=== PATIENT | male | born 1960 ===

== ENCOUNTER 2016-12-13 14:22 | Observation (INO) | payer MEDICAID, OTHER ==
[2016-12-13 14:35] VITALS: BMI 23.1
[2016-12-13] MEDS ORDERED: Aspirin 325 mg EC Tablets PO STA (15:20)
[2016-12-13 15:35] LABS: BASO # 0.1 K/uL (0.0-0.2); BASO % 0.5 % (0.0-2.0); EOS % 0.2 % (0.0-4.0); HEMATOCRIT 44.8 % (35.0-51.0); LYMPH # 3.6 K/uL (1.0-4.3); LYMPH % 33.1 % (20.0-40.0); MEAN CORPUSCULAR HEMOGLOBIN 29.2 pg (27.0-31.0); MEAN CORPUSCULAR HGB CONC 34.4 g/dL (33.0-37.0); MEAN PLATELET VOLUME 7.2 fL (7.2-11.7); MONO # 0.7 K/uL (0.0-0.8); NRBC % 0.1 % (0.0-2.0); RED CELL DISTRIBUTION WIDTH 12.6 % (11.5-14.5); WHITE BLOOD COUNT 10.9 K/uL (4.8-10.8)
[2016-12-13 15:42] LABS: CHLORIDE 95 mmol/L (98-107)
[2016-12-13 15:43] LABS: POTASSIUM 3.5 mmol/L (3.6-5.2); SODIUM 135 mmol/L (132-148)
[2016-12-13 15:45] LABS: BILIRUBIN,TOTAL 1.4 mg/dL (0.2-1.3); GFR AFRICAN-AMERICAN > 60
[2016-12-13 15:46] LABS: ALB/GLOB RATIO 1.2 (1.0-2.1); ALKALINE PHOSPHATASE 98 U/L (38-126); ALT/SGPT 42 U/L (21-72); AST/SGOT 27 U/L (17-59); BLOOD UREA NITROGEN 12 mg/dL (9-20); CALCIUM 9.5 mg/dl (8.6-10.4); CARBON DIOXIDE 24 mmol/L (22-30); GLUCOSE,RANDOM 93 mg/dL (75-110); TOTAL PROTEIN 8.3 g/dL (6.3-8.3)
[2016-12-13 15:53] LABS: PARTIAL THROMBOPLASTIN TIME 32 SECONDS (21-34)
--- NOTE | 2016-12-13 15:54 | C.PDOC ---
History Of Present Illness 56 yr old male with PMHx of HTN and gastritis, presents to the ER for intermittent left sided chest discomfort for the past 3-4 days. Patient describes it as a squeezing sensation and feels like his heart is racing and feels SOB for few minuets. Patient states he gets these symptoms when he is resting and something when he is walking. Reports 2 months ago he was in [facility] and was seen by a doctor who did an EKG and echo but is unknown of the results. Patient also reports 2 month history of left sided throbbing headache, states the headache comes and goes. States the headache occurs on a daily bases and usually last all day, has tries Tylenol with minimal relief. Patient denies trauma, fever, chills, vision changes, photophobia, nausea, vomiting, weakness or numbness. Time Seen by Provider: 12/13/16 14:52 Chief Complaint (Nursing): Chest Pain History Per: Patient History/Exam Limitations: no limitations Onset/Duration Of Symptoms: Days Past Medical History Reviewed: Historical Data, Nursing Documentation, Vital Signs Vital Signs: Last Vital Signs Temp 98.1 F 12/13/16 14:36 Pulse 94 H 12/13/16 18:01 Resp 18 12/13/16 18:01 BP 152/91 H 12/13/16 18:01 Pulse Ox 100 12/13/16 19:07 - Medical History PMH: Benign Prostatic Hyperplasia, Gastritis, HTN, Kidney Stones, Chronic Kidney Disease Family History: States: No Known Family Hx, Unknown Family Hx - Social History Hx Tobacco Use: No Hx Alcohol Use: Yes Hx Substance Use: No - Immunization History Hx Tetanus Toxoid Vaccination: No Hx Influenza Vaccination: No Hx Pneumococcal Vaccination: No Review Of Systems Except As Marked, All Systems Reviewed And Found Negative. Constitutional: Negative for: Fever, Chills Eyes: Negative for: Vision Change Cardiovascular: Positive for: Other ((+) Left sided chest discomfort ) Gastrointestinal: Negative for: Nausea, Vomiting Neurological: Positive for: Headache (Left sided throbing ). Negative for: Weakness, Numbness Physical Exam - Physical Exam Appears: Well, Non-toxic, No Acute Distress Skin: Warm, Dry, No Rash Head: Atraumatic, Normacephalic Oral Mucosa: Moist Chest: Symmetrical, No Tenderness Cardiovascular: Rhythm Regular, No Murmur Respiratory: Normal Breath Sounds, No Rales, No Rhonchi, No Wheezing Gastrointestinal/Abdominal: Normal Exam, Soft, No Tenderness, No Guarding, No Rebound Extremity: Normal ROM, No Swelling Neurological/Psych: Oriented x3, Normal Speech, Normal Motor ED Course And Treatment - Laboratory Results Result Diagrams: 12/13/16 15:31 12/13/16 15:31 ECG: Interpreted By Me ECG Rhythm: Sinus Rhythm (NSR at 97 bpm, (-) acute ST changes, as read by PA) O2 Sat by Pulse Oximetry: 100 - Other Rad CXR X-Ray: Viewed By Me, Read By Radiologist Interpretation: HISTORY: chest pain. COMPARISON: Chest x-ray performed . TECHNIQUE: Chest, one view. FINDINGS: Examination limited by habitus. LUNGS: No focal consolidation. Please note that chest x-ray has limited sensitivity for the detection of pulmonary masses. PLEURA: No significant pleural effusion identified. No definite pneumothorax . CARDIOVASCULAR: The cardiomediastinal silhouette appears within normal limits of size. OSSEOUS STRUCTURES: No acute osseous abnormality identified. VISUALIZED UPPER ABDOMEN : Unremarkable. OTHER FINDINGS: None. IMPRESSION: No focal consolidation, significant pleural effusion, or definite pneumothorax identified. - CT Scan/US CT - Head Other Rad Studies (CT/US): Read By Radiologist, Radiology Report Reviewed CT/US Interpretation: PROCEDURE: CT HEAD WITHOUT CONTRAST. HISTORY: headache. COMPARISON: None available. TECHNIQUE: Axial computed tomography images were obtained through the head/brain without intravenous contrast. Radiation dose: Total exam DLP = 828.41 mGy-cm. This CT exam was performed using one or more of the following dose reduction techniques: Automated exposure control, adjustment of the mA and/or kV according to patient size, and/ or use of iterative reconstruction technique. FINDINGS: HEMORRHAGE: No intracranial hemorrhage. BRAIN: No mass effect or edema. Minimal scattered white matter hypodensities, which are nonspecific, but often seen with chronic microvascular ischemic disease. Please note that MRI with diffusion imaging is more sensitive in the detection of acute ischemic event. VENTRICLES: No hydrocephalus. CALVARIUM: Unremarkable. PARANASAL SINUSES: Unremarkable as visualized. No significant inflammatory changes. MASTOID AIR CELLS: Unremarkable as visualized. No inflammatory changes. OTHER FINDINGS: None. IMPRESSION: No acute intracranial pathology identified. Medical Decision Making Medical Decision Making: PLAN: * CT - Head * CXR * EKG * Troponin * D-Dimer * CBC * Aspirin PO Labs reviewed and are wnl, trop (-), d-dimer (-). CXR NAD, CT head negative. On re-evaluation, patient states that he has no chest pain, palpitations, SOB or headache at this time. Exam is unchanged, patient is sitting up in bed comfortably in no acute distress. Diagnostic results discussed with the patient. Case d/w Dr. Gill, agrees with plan for inpatient tele obs with consult with Dr. Champion for cardiology. Bridge orders placed with second troponin ordered. Patient agrees with current plan of care. Disposition Discussed With : Susanne Gill Comment: agrees with inpatient obs tele Doctor Will See Patient In The: Hospital Counseled Patient/Family Regarding: Studies Performed, Diagnosis - Disposition Disposition: HOSPITALIZED Disposition Time: 18:00 (inpatient tele obs) Condition: STABLE - Clinical Impression Clinical Impression: Chest pain, SOB (shortness of breath), Headache, Palpitation - PA / [employer] / Resident Statement MD/DO has reviewed & agrees with the documentation as recorded. - Scribe Statement The provider has reviewed the documentation as recorded by the Scribe Estefanía Blas All medical record entries made by the Devibjean claude were at my direction and personally dictated by me. I have reviewed the chart and agree that the record accurately reflects my personal performance of the history, physical exam, medical decision making, and the department course for this patient. I have also personally directed, reviewed, and agree with the discharge instructions and disposition.
--- NOTE | 2016-12-13 16:13 | RAD ---
HISTORY: chest pain COMPARISON: Chest x-ray performed 07/12/15 TECHNIQUE: Chest, one view. FINDINGS: Examination limited by habitus. LUNGS: No focal consolidation. Please note that chest x-ray has limited sensitivity for the detection of pulmonary masses. PLEURA: No significant pleural effusion identified. No definite pneumothorax . CARDIOVASCULAR: The cardiomediastinal silhouette appears within normal limits of size. OSSEOUS STRUCTURES: No acute osseous abnormality identified. VISUALIZED UPPER ABDOMEN: Unremarkable. OTHER FINDINGS: None. IMPRESSION: No focal consolidation, significant pleural effusion, or definite pneumothorax identified.
--- NOTE | 2016-12-13 17:14 | CT ---
PROCEDURE: CT HEAD WITHOUT CONTRAST. HISTORY: headache COMPARISON: None available. TECHNIQUE: Axial computed tomography images were obtained through the head/brain without intravenous contrast. Radiation dose: Total exam DLP = 828.41 mGy-cm. This CT exam was performed using one or more of the following dose reduction techniques: Automated exposure control, adjustment of the mA and/or kV according to patient size, and/or use of iterative reconstruction technique. FINDINGS: HEMORRHAGE: No intracranial hemorrhage. BRAIN: No mass effect or edema. Minimal scattered white matter hypodensities, which are nonspecific, but often seen with chronic microvascular ischemic disease. Please note that MRI with diffusion imaging is more sensitive in the detection of acute ischemic event. VENTRICLES: No hydrocephalus. CALVARIUM: Unremarkable. PARANASAL SINUSES: Unremarkable as visualized. No significant inflammatory changes. MASTOID AIR CELLS: Unremarkable as visualized. No inflammatory changes. OTHER FINDINGS: None. IMPRESSION: No acute intracranial pathology identified.
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
--- NOTE | 2016-12-13 21:33 | CP.PCM.CON ---
History of Present Illness - History of Present Illness History of Present Illness: 56 Male admitted with Chest pain History Of Present Illness 56 yr old male with PMHx of HTN and gastritis, presents to the ER for intermittent left sided chest discomfort for the past 3-4 days. Patient describes it as a squeezing sensation and feels like his heart is racing and feels SOB for few minuets. Patient states he gets these symptoms when he is resting and something when he is walking. Reports 2 months ago he was in [facility] and was seen by a doctor who did an EKG and echo but is unknown of the results. Patient also reports 2 month history of left sided throbbing headache, states the headache comes and goes. States the headache occurs on a daily bases and usually last all day, has tries Tylenol with minimal relief. Patient denies trauma, fever, chills, vision changes, photophobia, nausea, vomiting, weakness or numbness. Chief Complaint (Nursing): Chest Pain History Per: Patient History/Exam Limitations: no limitations Onset/Duration Of Symptoms: Days - Medical History PMH: Benign Prostatic Hyperplasia, Gastritis, HTN, Kidney Stones, Chronic Kidney Disease Family History: States: No Known Family Hx, Unknown Family Hx - Social History Hx Tobacco Use: No Hx Alcohol Use: Yes Hx Substance Use: No - Immunization History Hx Tetanus Toxoid Vaccination: No Hx Influenza Vaccination: No Hx Pneumococcal Vaccination: No Review Of Systems Except As Marked, All Systems Reviewed And Found Negative. Constitutional: Negative for: Fever, Chills Eyes: Negative for: Vision Change Cardiovascular: Positive for: Other ((+) Left sided chest discomfort ) Gastrointestinal: Negative for: Nausea, Vomiting Neurological: Positive for: Headache (Left sided throbing ). Negative for: Weakness, Numbness Physical Exam - Physical Exam Appears: Well, Non-toxic, No Acute Distress Skin: Warm, Dry, No Rash Head: Atraumatic, Normacephalic Oral Mucosa: Moist Chest: Symmetrical, No Tenderness Cardiovascular: Rhythm Regular, No Murmur Respiratory: Normal Breath Sounds, No Rales, No Rhonchi, No Wheezing Gastrointestinal/Abdominal: Normal Exam, Soft, No Tenderness, No Guarding, No Rebound Extremity: Normal ROM, No Swelling Neurological/Psych: Oriented x3, Normal Speech, Normal Motor Past Patient History - Infectious Disease Hx of Infectious Diseases: None - Past Social History Smoking Status: Never Smoked - CARDIAC Hx Hypertension: Yes - RENAL Hx Chronic Kidney Disease: Yes Hx Kidney Stones: Yes - GASTROINTESTINAL Hx Gastritis: Yes - GENITOURINARY/GYNECOLOGICAL Hx Genitourinary Disorders: Yes - PSYCHIATRIC Hx Substance Use: No - SURGICAL HISTORY Hx Surgeries: Yes Other/Comment: left foot surgery with 12 screws inserted - ANESTHESIA Hx Anesthesia: Yes Hx Anesthesia Reactions: No Meds Allergies/Adverse Reactions: Allergies Allergy/AdvReac Type Severity Reaction Status Date / Time xanax AdvReac PALPITATION Uncoded 12/13/16 14:34 S - Medications Medications: Current Medications Aspirin (Ecotrin) 81 mg PO HS CAROLINE Escitalopram Oxalate (Lexapro) 10 mg PO DAILY CAROLINE Lorazepam (Ativan) 0.5 mg PO BID CAROLINE Metoprolol Tartrate (Lopressor) 25 mg PO BID CAROLINE Results - Vital Signs Recent Vital Signs: Last Vital Signs Temp 98.1 F 12/13/16 14:36 Pulse 90 12/13/16 21:16 Resp 18 12/13/16 21:16 BP 127/88 12/13/16 21:16 Pulse Ox 97 12/13/16 21:16 - Labs Result Diagrams: 12/13/16 15:31 12/13/16 15:31 Assessment & Plan - Assessment and Plan (Free Text) Assessment: 56 Male with Hx of HTN and chest pain Stress test and ECHO in am
[2016-12-14 11:30] VITALS: TEMP 98
--- NOTE | 2016-12-14 13:42 | CP.PCM.DIS ---
Provider - Provider Date of Admission: 12/13/16 18:10 Attending physician: Susanne Gill MD Time Spent in preparation of Discharge (in minutes): 45 Diagnosis - Discharge Diagnosis (1) Chest pain Status: Acute (2) Headache Status: Acute (3) Palpitation Status: Acute (4) Anxiety Status: Acute Hospital Course - Lab Results Lab Results: Most Recent Lab Values WBC 10.9 K/uL (4.8-10.8) H 12/13/16 15: RBC 5.27 Mil/uL (4.40-5.90) 12/13/16 15: Hgb 15.4 g/dL (12.0-18.0) 12/13/16 15: Hct 44.8 % (35.0-51.0) 12/13/16 15: MCV 85.0 fL (80.0-94.0) D 12/13/16 15: MCH 29.2 pg (27.0-31.0) 12/13/16 15: MCHC 34.4 g/dL (33.0-37.0) 12/13/16 15: RDW 12.6 % (11.5-14.5) 12/13/16 15: Plt Count 381 K/uL (130-400) 12/13/16 15: MPV 7.2 fL (7.2-11.7) 12/13/16 15: Neut % (Auto) 60.2 % (50.0-75.0) 12/13/16 15: Lymph % (Auto) 33.1 % (20.0-40.0) 12/13/16 15: Williams % (Auto) 6.0 % (0.0-10.0) 12/13/16 15: Eos % (Auto) 0.2 % (0.0-4.0) 12/13/16 15: Baso % (Auto) 0.5 % (0.0-2.0) 12/13/16 15: Neut # 6.6 K/uL (1.8-7.0) 12/13/16 15: Lymph # 3.6 K/uL (1.0-4.3) 12/13/16 15: Williams # 0.7 K/uL (0.0-0.8) 12/13/16 15:31 Eos # 0.0 K/uL (0.0-0.7) 12/13/16 15:31 Baso # 0.1 K/uL (0.0-0.2) 12/13/16 15:31 PT 11.5 SECONDS (9.7-12.2) 12/13/16 15:31 INR 1.0 12/13/16 15:31 APTT 32 SECONDS (21-34) 12/13/16 15:31 D-Dimer, Quantitative < 200 ng/mlDDU (0-243) 12/13/16 15:31 Sodium 135 mmol/L (132-148) 12/13/16 15:31 Potassium 3.5 mmol/L (3.6-5.2) L 12/13/16 15:31 Chloride 95 mmol/L (98-107) L 12/13/16 15:31 Carbon Dioxide 24 mmol/L (22-30) 12/13/16 15:31 Anion Gap 20 (10-20) 12/13/16 15:31 BUN 12 mg/dL (9-20) 12/13/16 15:31 Creatinine 0.7 MG/DL (0.8-1.5) L 12/13/16 15:31 Est GFR ( Amer) > 60 12/13/16 15:31 Est GFR (Non-Af Amer) > 60 12/13/16 15:31 Random Glucose 93 mg/dL (75-110) 12/13/16 15:31 Calcium 9.5 mg/dl (8.6-10.4) 12/13/16 15:31 Total Bilirubin 1.4 mg/dL (0.2-1.3) H 12/13/16 15:31 AST 27 U/L (17-59) 12/13/16 15:31 ALT 42 U/L (21-72) 12/13/16 15:31 Alkaline Phosphatase 98 U/L (38-126) 12/13/16 15:31 Total Creatine Kinase 176 U/L (55-170) H 12/14/16 06:49 CK-MB (Mass) 4.02 ng/mL (0.0-3.38) H 12/14/16 06:49 Troponin I < 0.0120 ng/mL (0.00-0.120) 12/13/16 21:27 Troponin I, Quant < 0.0120 ng/mL (0.00-0.120) 12/14/16 06:49 Total Protein 8.3 g/dL (6.3-8.3) 12/13/16 15:31 Albumin 4.6 g/dL (3.5-5.0) 12/13/16 15:31 Globulin 3.7 gm/dL (2.2-3.9) 12/13/16 15:31 Albumin/Globulin Ratio 1.2 (1.0-2.1) 12/13/16 15:31 - Hospital Course Hospital Course: 56-year-old male with history of hypertension, anxiety, renal colic, history of depression, also, came to the emergency room with ongoing chest discomfort and chest pain. Patient presented to the emergency room with the atypical chest pain, the time patient was evaluated. Cardiac enzymes are negative. EKG was nonspecific. Patient was hospitalized to telemetry, stress test was done. As per the cardiology test were negative. Currently patient is stable. He can discharge home today. Final diagnosis: Atypical chest pain. Anxiety, depression. Palpitation. Hypertension. Renal colic. Hypercholesterolemia. Will follow the patient as an outpatient. Patient will continue his home medications reviewed Discharge Exam - Head Exam Head Exam: ATRAUMATIC Discharge Plan - Follow Up Plan Condition: STABLE Disposition: HOME/ ROUTINE
[2016-12-14 14:03] VITALS: BP 137/97; PULSE 70; RESP 9; O2SAT 98
--- NOTE | 2016-12-14 17:08 | CARD ---
APPROVED REPORT Protocol: JULIO Test Type: NUCLEAR STRESS Test Indications: CP Target HR: 165 bpm Resting ECG: normal Resting Heart Rate: 88 bpm Resting Blood Pressure: 132/80mmHg submaximum (85%): 140 bpm TEST SUMMARY PRETESTWARM-UP11:[id number]/80.0. EXERCISESTAGE 102:[id number]/80.0. EXERCISESTAGE 203:[id number]/80.0. EXERCISESTAGE 300:[id number]/80.0. [id number]/80.0. POST EXERCISE Reason for Termination: PROTOCOL COMPLETED Target HR: No Max HR: 131 bpm 81% of Maximum Predicted HR: 165 bpm Exercise duration: 05:25 min:sec, 3 Stage Exercise capacity: 7.2METs Max Blood Pressure: 150/80mmHg Blood Pressure response to exercise: normal resting BP - appropriate response Heart Rate response to exercise: appropriate Chest Pain: No, none Angina index: 0 Arrhythmia: No, none ST Change: No, none Deviation: 0 mm INTERPRETATION Stress EKG Conclusion: NL EST NUCLEAR PENDING EXAM: Myocardial Perfusion STRESS/REST Imaging Protocol The imaging protocol used to acquire images was Stress Tc-99m/rest Tc-99m 1 day Rest Spect myocardial perfusion imaging was performed in supine position 45 minutes following the injection of 32.9 mCi of Tc-99 Myoview. Gated Stress Spect was performed 45 minutes after intravenous 12.6 mCi Tc-99 Myoview injection. The images were gated to evaluate regional wall motion and calculate ventricular ejection fraction.Images were reconstructed using backfilter projection method in short horizontal and verticle long axis. Spect slices were generated. RESTING DATA EDV75.37hmKD9.90L/min ESV19.00mlMyocardial Kzsd463.00g Av. Heart Rate70.00bpm EF75.00% STRESS DATA EDV83.99reUZ2.70L/min ESV20.00mlMyocardial Pgbj773.00g EF76.00% Regional WT score at stress:0.00 Regional WM score at stress:0.00 Summed WT score at stress:0.00 Av. Heart Rate74.00bpmSummed WM score at stress:0.00 LV Perf. Quant 17 Seg. SSS0.00 17 Seg. SRS0.00 17 Seg. SDS0.00 Stress Defect Extent (% LAD)0.00Rest Defect Extent (% LAD)0.00Rev. Defect Extent (% LAD)0.00 Stress Defect Extent (% LCX)0.00Rest Defect Extent (% LCX)0.00Rev. Defect Extent (% LCX)0.00 Stress Defect Extent (% RCA)0.00Rest Defect Extent (% RCA)0.00Rev. Defect Extent (% RCA)0.00 Stress Defect Extent (% LIU)0.00Rest Defect Extent (% LIU)0.00Rev. Defect Extent (% LIU)0.00 Conclusion 1. Normal exercise nuclear stress test
--- NOTE | 2016-12-14 17:47 | CP.PCM.PN ---
Subjective - Date & Time of Evaluation Date of Evaluation: 12/14/16 Time of Evaluation: 12:30 - Subjective Subjective: Patient s/p stress test Stress test: Normal Non cardiac chest pain Objective - Vital Signs/Intake and Output Vital Signs (last 24 hours): Temp Pulse Resp BP Pulse Ox 98.0 F 70 9 L 137/97 H 98 12/14/16 08:00 12/14/16 13:47 12/14/16 13:47 12/14/16 13:47 12/14/16 13:47 Intake and Output: 12/14/16 12/14/16 06:59 18:59 Intake Total 750 0 Balance 750 0 - Labs Labs: PT 11.5 SECONDS (9.7-12.2) 12/13/16 15:31 INR 1.0 12/13/16 15:31 APTT 32 SECONDS (21-34) 12/13/16 15:31
--- NOTE | 2016-12-15 13:14 | CARD ---
APPROVED REPORT EKG Measurement Heart [id number] MA [id number] <Conclusion> Normal sinus rhythm Normal ECG
--- NOTE | 2016-12-15 15:01 | CARD ---
APPROVED REPORT EXAM: Two-dimensional and M-mode echocardiogram with Doppler and color Doppler. Other Information Quality : GoodRhythm : INDICATION Dyspnea Chest Pain Palpitations RISK FACTORS Hypertension M-Mode DIMENSIONS RVDd2.51 (2.1-3.2cm)Left Atrium (MM)2.17 (2.5-4.0cm) IVSd0.65 (0.7-1.1cm)Aortic Root3.27 (2.2-3.7cm) LVDd4.46 (4.0-5.6cm)Aortic Cusp Exc.2.03 (1.5-2.0cm) PWd0.79 (0.7-1.1cm)FS (%) 37 % LVDs2.82 (2.0-3.8cm)LVEF (%)67 (>50%) Mitral Valve MV E Wcmebbum54.7cm/sMV A Zakzneli77.3cm/sE/A ratio1.0 TDI E/Lateral E'0.0E/Medial E'0.0 Tricuspid Valve TR Peak [id number]/sTR Peak Gr.[id number] <Conclusion> normal size la,lv & ra rv. normal lv wall motion,thickness,systolic & diastolic function with lvef of 65-70%. normal aortic,mitral,tv & pv. mild tr with normal pulmonary systolic pressures of 25 mm of hg. no pericrdial effusion. normal size aortic root.
--- NOTE | 2016-12-15 15:19 | CARD ---
APPROVED REPORT EKG Measurement Heart [id number] ID [id number] <Conclusion> Normal sinus rhythm Normal ECG
== END 2016-12-14 15:45 | disposition home or self-care (01) ==
LOC: C.ER 14:22 → C.9E 18:10 → C.9I 21:03
PROVIDERS: ADMIT Internal Medicine; ATTEND Internal Medicine
DX: R07.9 Chest pain, unspecified (principal); R51 Headache; R00.2 Palpitations; F41.9 Anxiety disorder, unspecified; K29.70 Gastritis, unspecified, without bleeding; N40.0 Benign prostatic hyperplasia without lower urinary tract symptoms; Z87.442 Personal history of urinary calculi; I12.9 Hypertensive chronic kidney disease with stage 1 through stage 4 chronic kidney disease, or unspecified chronic kidney disease; N18.9 Chronic kidney disease, unspecified
CPT/HCPCS: 70450; 71010; 78452; 80053; 84484; 85025; 85378; 85610; 85730; 87070; 87081; 93005; 93017; 93306; 99285; A9502; G0378

== ENCOUNTER 2017-08-08 00:54 | Emergency (ER) | payer SELFPAY ==
[2017-08-08 00:55] VITALS: BMI 23.1
[2017-08-08 01:00] VITALS: BP 148/91; PULSE 78; RESP 16; TEMP 97.9; O2SAT 100
--- NOTE | 2017-08-08 01:14 | C.PDOC ---
History Of Present Illness 57 year old male presents to the ED with complains of inability to breath after undergoing nasal surgery last week. Patient has packing in both of his nostrils that was placed by his ENT doctor. Patient denies fever, chills, dyspnea at this time. Chief Complaint (Nursing): Shortness Of Breath History Per: Patient History/Exam Limitations: no limitations Onset/Duration Of Symptoms: Days Current Symptoms Are (Timing): Still Present Current Respiratory Medications: See Home Med List Additional History Per: Patient Past Medical History Reviewed: Historical Data, Nursing Documentation, Vital Signs Vital Signs: Last Vital Signs Temp 97.9 F 08/08/17 00:58 Pulse 78 08/08/17 00:58 Resp 16 08/08/17 01:11 BP 148/91 H 08/08/17 00:58 Pulse Ox 100 08/08/17 01:19 - Medical History PMH: Benign Prostatic Hyperplasia, Gastritis, HTN, Kidney Stones, Chronic Kidney Disease Surgical History: No Surg Hx Family History: States: Unknown Family Hx - Social History Hx Tobacco Use: No Hx Alcohol Use: No Hx Substance Use: No - Immunization History Hx Tetanus Toxoid Vaccination: No Hx Influenza Vaccination: No Hx Pneumococcal Vaccination: No Review Of Systems Constitutional: Negative for: Fever, Chills ENT: Positive for: Other (inability to breath due to nasal packing s/p nasal surgery ) Physical Exam - Physical Exam Appears: Non-toxic, No Acute Distress, Other (nervous and anxious ) Skin: Normal Color, Warm, Dry Head: Atraumatic, Normacephalic Eye(s): bilateral: Normal Inspection Nose: Other (nasal packing in place ) Oral Mucosa: Moist Neck: Supple Chest: Symmetrical, No Deformity, No Tenderness Cardiovascular: Rhythm Regular Respiratory: Normal Breath Sounds, No Rales, No Rhonchi, No Wheezing Extremity: Normal ROM, Capillary Refill (less than 2 seconds ) Neurological/Psych: Oriented x3, Normal Speech, Normal Cognition Gait: Steady ED Course And Treatment O2 Sat by Pulse Oximetry: 100 (on RA) Pulse Ox Interpretation: Normal Progress Note: Patient states he gets tachycardic when he takes Xanax. Ativan PO administered. Disposition Counseled Patient/Family Regarding: Diagnosis - Disposition Referrals: Susanne Gill MD [Staff Provider] - Disposition: HOME/ ROUTINE Disposition Time: 01:39 Condition: STABLE Prescriptions: Lorazepam [Ativan] 0.5 mg PO BID #10 tab Instructions: Anxiety (ED) Forms: [facility] (Turkish) - POA Present On Arrival: None - Clinical Impression Clinical Impression: Anxiety - Scribe Statement The provider has reviewed the documentation as recorded by the Scribe (Ila Elliott) Provider Attestation: All medical record entries made by the Scribe were at my direction and personally dictated by me. I have reviewed the chart and agree that the record accurately reflects my personal performance of the history, physical exam, medical decision making, and the department course for this patient. I have also personally directed, reviewed, and agree with the discharge instructions and disposition.
== END 2017-08-08 01:45 | disposition home or self-care (01) ==
LOC: C.ER 00:54
DX: F41.9 Anxiety disorder, unspecified (principal)

== ENCOUNTER 2018-02-04 23:58 | Emergency (ER) | payer MEDICAID, OTHER ==
[2018-02-04 23:58] VITALS: BMI 23.1
[2018-02-05 00:08] VITALS: RESP 18; O2SAT 99
[2018-02-05 00:43] VITALS: BP 138/90; PULSE 80; TEMP 98
--- NOTE | 2018-02-05 00:44 | C.PDOC ---
History Of Present Illness 58 year old male with a Hx of chronic anxiety on lexapro presents to the ER after feeling anxious tonight. Patient describes the anxiousness as palpitations that occurred while sitting at home. Patient took is lexapro but states it took longer than usual to take effect. On arrival patient reports he feels much improved and is requesting to leave. Denies chest pain, SOB, nausea, or vomiting. Time Seen by Provider: 02/05/18 00:13 Chief Complaint (Nursing): Anxiety History Per: Patient History/Exam Limitations: no limitations Onset/Duration Of Symptoms: Hrs Suicide/Self Injury Attempted (Context): None Associated Symptoms: Anxiety. denies: Other (Chest pain, SOB, nausea, and vomiting) Involuntary Hold By: None Recent travel outside of the [place]: No Past Medical History Reviewed: Historical Data, Nursing Documentation, Vital Signs Vital Signs: Last Vital Signs Temp 98 F 02/05/18 00:42 Pulse 80 02/05/18 00:42 Resp 18 02/05/18 00:42 BP 138/90 02/05/18 00:42 Pulse Ox 99 02/05/18 00:44 - Medical History PMH: Anxiety, Benign Prostatic Hyperplasia, Gastritis, HTN, Kidney Stones, Chronic Kidney Disease Family History: States: Unknown Family Hx - Social History Hx Tobacco Use: No Hx Alcohol Use: No Hx Substance Use: No - Immunization History Hx Tetanus Toxoid Vaccination: No Hx Influenza Vaccination: No Hx Pneumococcal Vaccination: No Review Of Systems Constitutional: Negative for: Fever, Chills Cardiovascular: Negative for: Chest Pain Respiratory: Negative for: Shortness of Breath Gastrointestinal: Negative for: Nausea, Vomiting Psych: Positive for: Anxiety Physical Exam - Physical Exam Appears: Non-toxic, No Acute Distress Skin: Normal Color, Warm, Dry Head: Atraumatic, Normacephalic Eye(s): bilateral: Normal Inspection Chest: Symmetrical, No Tenderness Cardiovascular: Rhythm Regular Respiratory: Normal Breath Sounds, No Rales, No Rhonchi, No Wheezing Neurological/Psych: Oriented x3, Normal Speech ED Course And Treatment O2 Sat by Pulse Oximetry: 99 (Room air) Pulse Ox Interpretation: Normal Progress Note: Patient feels better on arrival and is requesting to go home, repeat vitals are within normal limits, will discharge home with instructions to follow up with PMD. Disposition Counseled Patient/Family Regarding: Diagnosis, Need For Followup - Disposition Referrals: Non [facility] Provider, [Primary Care Provider] - Disposition: HOME/ ROUTINE Disposition Time: 00:42 Condition: STABLE Additional Instructions: Please continue all medications Follow up with PMD return to ER if worse Instructions: Anxiety, Adult (DC) Forms: [employer] (Uruguayan) - Clinical Impression Clinical Impression: Anxiety - PA / [employer] / Resident Statement MD/DO has reviewed & agrees with the documentation as recorded. - Scribe Statement The provider has reviewed the documentation as recorded by the Scribjean claude Weaver All medical record entries made by the Devibjean claude were at my direction and personally dictated by me. I have reviewed the chart and agree that the record accurately reflects my personal performance of the history, physical exam, medical decision making, and the department course for this patient. I have also personally directed, reviewed, and agree with the discharge instructions and disposition.
== END 2018-02-05 00:50 | disposition home or self-care (01) ==
LOC: SUPCPDRO 23:58 → C.ER 23:58
DX: F41.9 Anxiety disorder, unspecified (principal); I12.9 Hypertensive chronic kidney disease with stage 1 through stage 4 chronic kidney disease, or unspecified chronic kidney disease; N18.9 Chronic kidney disease, unspecified